=== PATIENT | male | born 1970 | race Caucasian/White ===

== ENCOUNTER → 2016-04-01 | Outpatient (CLI) | payer BC ==
[~2016-04-01] MED LIST: ATOR-22 PO; CEPH500C2 PO; FAMO20TA11 PO; IRBE-37 PO; LEVO50TA6 PO; MULT-506 PO; OXYC1TAB3 PO; PRED20TA PO
[2016-04-01 11:36] LABS: ALB/GLOB RATIO 1.1 (0.9-2); ALKALINE PHOSPHATASE 82 U/L (45-117); ALT/SGPT 155 U/L (12-78); AST/SGOT 65 U/L (15-37); BLOOD UREA NITROGEN 20 mg/dl (7-18); BUN/CREATININE RATIO 14.3 (10-20); CALCIUM 9.2 mg/dl (8.5-10.1); CARBON DIOXIDE 26 mmol/L (21-32); CHLORIDE 106 mmol/L (98-107); CHOLESTEROL 310 mg/dl (0-200); CHOLESTEROL/HDL RATIO 6.6; GLUCOSE 95 mg/dl (70-99); HDL CHOLESTEROL 47 mg/dl; LDL CHOLESTEROL CALCULATED 220 mg/dl; POTASSIUM 4.1 mmol/L (3.5-5.1); SODIUM 142 mmol/L (136-145); TRIGLYCERIDES 216 mg/dl (0-150); VERY LOW DENSITY LIPOPROT CALC 43 mg/dl
== END | disposition home or self-care (01) ==
LOC: C.LABBC 08:17
PROVIDERS: ATTEND Internal Medicine
DX: G47.33 Obstructive sleep apnea (adult) (pediatric) (principal)

== ENCOUNTER → 2016-04-12 | Outpatient (CLI) | payer BC | END | disposition home or self-care (01) | LOC: C.PATH 08:18 | PROVIDERS: ATTEND Internal Medicine | DX: R22.1 Localized swelling, mass and lump, neck (principal) ==

== ENCOUNTER → 2016-05-21 | Outpatient (CLI) | payer BC ==
--- NOTE | 2016-05-22 06:40 | PAP/PSG TECHNICIAN REPORT ---
[facility] Byproducts Maker Polysomnogram Report Study name: None Report date: 05/22/2016 Study date: 05/21/2016 Referring Physician: DR. Lianet LOCKHART Name: NIKOS THURMAN Interpreting Physician: Javier Mcgovern M.D. Date of : 1970 Byproducts Maker: Bobbi Montoya RPSGT. Sex: Male Age: 45 Study Type: PSG Weight: 232 lbs Height: 45 years, Height 6' 1" BMI: 30.61 Medications: ATORVASTATIN 20 MG, LEVOXYL 25 MCG, IRBESARTAN 150 MG, FISH OIL , MULTI VIT Patient History 45 yr-old male here for a baseline/split study. He has had previous sleep testing. He was found to be positive for mild PABLO in 2011. He could not tolerate CPAP, so he tried weight loss. His daytime sleepiness has returned. He is back to assess his PABLO. His [place] scale is 12. The test was started on room air. ETCO2 testing was not utilized during this study. Room 1 Parameters Monitored NPSG: E1-M2, E2-M1, Fp1-M2, Fp2-M1, F3-M2, F4-M2, F4-M1, C3-M2, C4-M2, C4-M1, O1-M2, O2-M2, O2-M1, T3-M2, T4-M1, P3-M2, P4-M1, CHIN1, CHIN2, HR, EKG, Legs, PFLOW, SNOR, FLOW, CFLOW, Tidal Volume, THOR, ABDO, SpO2, PLTH, CPRESS, ETCO2 Wave, ETCO2, pH Sleep Architecture Sleep Stages Time at Lights Off 10:46:37 PM STAGES Time (min.) TST (%) Time at Lights On 5:41:37 AM Wake 37.5 -- Total Recording Time (TRT) 415.00 min. N1 31.5 8 Total Sleep Period (TSP) 404.0 min. N2 253.0 67 Total Sleep Time (TST) 377.5min. N3 34.5 9 Awake Time 37.5 min. REM 58.5 15 Wake after Sleep Onset 35.5 min. Sleep Efficiency (SE) 91 % Sleep Onset Latency (FRED) 2.0 min. Number of Stage 1 Shifts None Awakenings 22 Stage Changes 91 Number of REM periods 4 REM 58.5 15 REM Latency 175.0 min. NREM 319.0 85 Body Position Analysis Supine Right Left Side Prone Vertical Total Sleep Time (min.) 130.1 167.7 81.5 249.18 0.0 0.0 Total Sleep Time (%) 34% 44% 22% 66 0% N/A% Total Sleep Time REM (min.) 19.0 39.0 0.5 None 0.0 0.0 Total Sleep Time NREM (min.) 109.3 128.7 81.0 None 0.0 0.0 Intermittent Wake (min.) 1.8 18.8 16.9 None 0.0 0.0 Total Sleep Period (%) 32% None None None None None Arousals Myoclonus (PLM) * Events Count Index Events Count Index Spontaneous 33 5 Events Awake (PLMW) 45 72.0 Respiratory 14 2.4 Events Asleep w/ Arousal (PLMA) 6 1.0 PLM 6 1 Events Asleep w/o Arousal (PLMS) 52 8.3 Snoring 8 1 Total Asleep 58 9.2 Total 60 10 Total 103 15 Respiratory Analysis * CA OA MA CH H RERA Total Count 0 4 0 0 41 6 45 Index 0.0 0.6 0.0 0 6.5 1 8.1 Mean Duration 0.0 23.9 0.0 0.00 21.1 17.4 20.9 Longest Duration 0.0 33.2 0.0 0.00 0.0 20.4 47.1 Respiratory Event Summary Total Supine ~Supine Right Left Prone REM NREM Apneas Count 4 2 2 2 0 N/A 3 1 Index 0.6 1 0 0.7 0.0 N/A 3 0 Hypopneas (4% Desat) Count 41 9 32 30 2 N/A 27 14 Index 6.5 4.2 8 10.7 1.5 N/A 27.7 2.6 Apneas & All Hypopneas Count 45 11 34 32 2 N/A 30 15 Index 7.2 5 8 11 1 N/A 30.8 2.8 Respiratory Events (Swat Team Member+All Hyp+RERA) Count 45 11 40 37 3 N/A 30 15 Index 8.1 5 10 13.2 2.2 N/A 34.9 3.2 Respiratory Related Arousal Count 14 11 11 10 1 N/A 7 8 Index 2.4 2 3 4 1 N/A 7 2 Snoring Analysis Supine Right Left Prone REM NREM Total Snore duration 59.0 min Snores count 925 939 502 N/A 393 1,973 2,366 Snore mean duration 1.5 Sec Snores index 433 336 370 N/A 403.1 371.1 376.1 TST with snoring (%) 15.6% Desaturation Event Summary: Minimum %SpO2 Event Count Mean/Min/Max Duration(sec.) Desaturation Index % Time In Bed > 90 71 31.6 / 9.3 / 60.0 11.9 87.9 86 - 90 8 23.6 / 9.3 / 37.0 10.6 11.1 81 - 85 0 N/A 0.0 0.9 76 - 80 0 N/A 0.0 0.1 71 - 75 0 N/A 0.0 0.0 66 - 70 0 N/A 0.0 0.0 61 - 65 0 N/A 0.0 0.0 56 - 60 0 N/A 0.0 0.0 51 - 55 0 N/A 0.0 0.0 < 50 0 N/A 0.0 0.0 Total REM NREM Awake <50% 0.0 min. 0.0 min. 0.0 min. 0.0 min. 51 - 60% 0.0 min. 0.0 min. 0.0 min. 0.0 min. 61 - 70% 0.0 min. 0.0 min. 0.0 min. 0.0 min. 71 - 80% 0.3 min. 0.3 min. 0.0 min. 0.0 min. 81 - 90% 48.8 min. 12.2 min. 35.7 min. 0.9 min. 91 - 100% 357.3 min. 46.1 min. 283.3 min. 27.9 min. Average 92 92 92 94 Minimum SpO2 77 77 87 82 Desaturation Event Index 10.4 31.8 6.8 8.0 # Desat. Events below 89% 25 17 8 N/A Time(%) with Saturation below 89% 2.1 1.7 0.3 0.1 Time(min.) with Saturation below 89% 8.5 6.9 1.3 0.3 Time (mins) REM (mins) NREM (mins) % of TST SpO2 Below 90% 56 28 N28 4.6 SpO2 Below 88% 12 0 0 1 Heart Rate Analysis Min (bpm) Max (bpm) Average (bpm) Awake 47 101 65 NREM 46 102 56 REM 48 90 59 Overall 46 102 57 Supplemental O2 Values Minimum O2 level: None Value Start Time End Time Byproducts Maker Comments Mr. Thurman slept in the right, left, and supine positions. No cardiac arrhythmias or PLMs noted. No bruxism noted. Snoring was noted and scored as a 3 on a scale of 1 through 5. (0=no snoring, 5=snoring loud enough to be heard through a closed door or down the marte way) He did not meet specific Split-Night criteria during the diagnostic portion of this study. He awoke to use the restroom one time during the night. Mr. Thurman stated that he slept about the same as usual. The final report will be interpreted and signed by a sleep physician. The completed physician report will then be placed in the patient medical record. Therapy (cm H2O) 0 TIB (min.) 415.0 TST (min.) 377.5 Sleep Onset (min.) 2.0 REM Onset From Sleep (min.) 175.0 Sleep Efficiency % 91 Wakefulness (%) 9 Wakefulness (min.) 37.5 NREM 1 (%) 8 NREM 1 (min.) 31.5 NREM 2 (%) 67 NREM 2 (min.) 253.0 NREM 3 (%) 9 NREM 3 (min.) 34.5 REM (%) 15 REM (min.) 58.5 # Arousals 60 Arousal Index 10 # Snore 2,366 Snore Index 376.1 AHI 7.2 AHI Supine 5 AHI Non-Supine 8 NREM AHI 2.8 REM AHI 30.8 RDI 8.1 # Obstructive Apnea 4 # Central Apnea 0 # Mixed Apnea 0 # Hypopneas 41 RERAs 6 Total Respiratory Events 51 Time Below SpO2 89% (min.) 8.2 Mean NREM SpO2 (%) 92 Mean REM SpO2 (%) 92 Mean Sleep SpO2 (%) 92 Min NREM SpO2 (%) 87 Min REM SpO2 (%) 77 Position Supine (min.) 130.1 Position Non-supine (min.) 249.2 LM Index Sleep 9.2 LM Index NREM 7.0 LM Index REM 21.5 Mean Heart Rate (bpm) 57 Min Heart Rate (bpm) 46
--- NOTE | 2016-05-24 09:40 | POLYSOMNOGRAPH REPORT ---
CLINICAL DATA: A 45-year-old male with a BMI of 30.6, referred by Dr. Mario Xiao for a baseline/split-night study. He had mild sleep apnea in 2012 but could not tolerate CPAP, so he tried weight loss. He now has had return of his daytime sleepiness. SLEEP ARCHITECTURE: Total sleep period was 404 minutes. Total sleep time was 377.5 minutes divided between 319 minutes of non-REM sleep and 58.5 minutes of REM sleep. Sleep onset latency was 2 minutes. REM latency was 175 minutes. Sleep efficiency was 91%. Wake after sleep onset was 35.5 minutes. Sleep consisted of stage N1 8%, N2 67%, N3 9%, REM 15%. AROUSAL DATA: 60 arousals were recorded for an index of 10 per hour. PLM DATA: 58 limb movements during sleep were noted for an index of 9.2 per hour with arousal index of 1 per hour. RESPIRATORY DATA: Mild sleep apnea was documented. The AHI was 7.2. The RDI was 8.1. There were 4 obstructive apneic episodes. The longest duration of apnea was 33.2 seconds. There were 41 hypopneic episodes. The mean duration of hypopnea was 21.1 seconds. There were 6 RERAs. The longest RERA was 20.4 seconds. OXIMETRY DATA: Nocturnal hypoxemia was seen. Oxygen diogenes was 77% during REM. Mean saturation was 92%. Time below 88% was 12 minutes. EKG: Heart rates ranged from 46-102 beats per minute. No arrhythmias were noted. SHEET ROCK TAPER'S COMMENTS: The patient slept in the right, left, and supine positions. Snoring was moderate, rated 3 on a scale of 1 through 5. He did not meet split-night criteria. IMPRESSION: Mild obstructive sleep apnea/hypopnea with an AHI of 7.2 and RDI of 8.1 with nocturnal hypoxemia. RECOMMENDATIONS: The patient may benefit from a repeat sleep study with CPAP, use of auto-CPAP, weight loss, or use of an oral appliance. Clinical correlation is needed. CRISTIANO
== END | disposition home or self-care (01) ==
LOC: C.NEUR 21:00
PROVIDERS: ATTEND Internal Medicine
DX: G47.00 Insomnia, unspecified (principal); G47.33 Obstructive sleep apnea (adult) (pediatric)

== ENCOUNTER 2016-12-12 23:49 | Emergency (ER) | payer BC ==
[~2016-12-12] VITALS: Ht 188 cm; Wt 103.3 kg
[2016-12-12 23:53] VITALS: TEMP 37; Ht 188 cm; Wt 103.3 kg
[2016-12-13] MEDS ORDERED: SODIUM CHLORIDE 0.9% 1000ML 1,000 ML IV STA (00:05)
[2016-12-13] MEDS ORDERED: CEFTRIAXONE SOD INJ 1 GM ADDVIAL IV STA (00:05)
[2016-12-13] MEDS ORDERED: ATOR-22 PO (00:13)
[2016-12-13] MEDS ORDERED: MULT-506 PO (00:13)
[2016-12-13] MEDS ORDERED: LEVO50TA6 PO (00:13)
[2016-12-13] MEDS ORDERED: IRBE-37 PO (00:13)
--- NOTE | 2016-12-13 00:13 | EMERGENCY ROOM VISIT NOTE ---
History Report prepared by Scribe: Cathy Navarro Under the Supervision of: Dr. Silas Araya M.D. First contact with patient: 00:00 Chief Complaint: ARM PAIN Stated Complaint: SWELLING IN LEFT ARM,PAIN IN LEFT ARM History of Present Illness The patient is a 46 year old male who presents to the Emergency Room with complaints of worsening left arm pain for the past 1 week. He rates his current discomfort as a 6/10 in severity. The patient reports he initially experienced a poison sara like rash on his left arm after being out in his back yard 1 week ago. Since then, the arm has become increasingly red, painful and swollen. He saw his doctors office several days ago and was placed on a course of Prednisone , which he since has finished. The Prednisone has provided only minimal relief. He has also experienced a rash on his left chest and flank area, but it's less severe than his left arm. The patient admits to a previous Poison Sara rash once before but states it was less severe than this occurrence. He denies any recent fevers, nausea, vomiting or syncopal episodes. Source of History: patient Onset: 1 week INSTRUMENT STERILIZER Position: arm (left) Symptom Intensity: 6/10 Timing: worsening Modifying Factors (Relieving): other (Prednisone) Associated Symptoms: + rash (left chest and flank), No fevers, No nausea, No vomiting Review of Systems See HPI for pertinent positives & negatives. A total of 10 systems reviewed and were otherwise negative. Past Medical & Surgical Medical Problems: (1) Hypertension Family History Diabetes mellitus Heart disease Hypertension Social History Smoking Status: Never Smoker Smokeless Tobacco Use: No Alcohol Use: occasionally Drug Use: none Marital Status: single Housing Status: lives alone Occupation Status: employed Current/Historical Medications Scheduled Atorvastatin (Lipitor), 20 MG PO DAILY Cephalexin Monohydrate (Keflex), 500 MG PO QID Irbesartan (Avapro), 150 MG PO DAILY Levothyroxine Sodium (Levothyroxine Sodium), 1 TAB PO DAILY Multivitamin (Multivitamin), 1 TAB PO DAILY Scheduled PRN Oxycodone Immediate Rel Tab (Roxicodone Ir), 1-2 TAB PO Q4H PRN for Severe Pain Allergies Coded Allergies: No Known Allergies (Unverified , 12/13/16) Physical Exam Vital Signs Date Time Temp Pulse Resp B/P (MAP) Pulse Ox O2 Delivery O2 Flow Rate FiO2 12/13/16 02:53 76 16 127/69 98 12/13/16 01:26 68 20 118/74 98 12/12/16 23:53 37.0 76 18 171/101 95 Room Air Physical Exam GENERAL: Patient is uncomfortable appearing and in mild distress. HEENT: No acute trauma, normocephalic atraumatic, mucous membranes moist, no nasal congestion, no scleral icterus. NECK: No stridor, no adenopathy, no meningismus, trachea is midline. LUNGS: No dyspnea. Clear to auscultation and equal bilaterally. No wheeze, no rhonchi. HEART: Regular rate and rhythm. No murmurs, rubs, gallops appreciated. EXTREMITIES: Swelling of the left arm, with extensive erythematous bullae and multiple areas of weeping and scabs. Distal pulses, movement and sensation are intact. Compartments are soft. NEUROLOGIC: Alert and oriented, no acute motor or sensory deficits, no focal weakness, cranial nerves grossly intact. SKIN: Mild rash over left flank and chest. No jaundice, no diaphoresis. Medical Decision & Procedures ER Provider Diagnostic Interpretation: Radiology results and stated below per my review and radiologist interpretation: US VENOUS LEFT UPPER EXTREMITY: No evidence of DVT. Heterogeneously increased echogenicity of the muscles of the anterior upper arm. Radiologist: Pablo Galvez M.D. Laboratory Results 12/13/16 00:10 Red Blood Count 5.07, Mean Corpuscular Volume 88.6, Mean Corpuscular Hemoglobin 30.8, Mean Corpuscular Hemoglobin Concent 34.7, Mean Platelet Volume 10.6, Neutrophils (%) (Auto) 42.3, Lymphocytes (%) (Auto) 37.3, Monocytes (%) (Auto) 10.6, Eosinophils (%) (Auto) 8.7, Basophils (%) (Auto) 0.7, Neutrophils # (Auto ) 4.74, Lymphocytes # (Auto) 4.19, Monocytes # (Auto) 1.19, Eosinophils # (Auto ) 0.98, Basophils # (Auto) 0.08 12/13/16 00:10 Test 12/13/16 00:10 White Blood Count 11.22 K/uL (4.8-10.8) Red Blood Count 5.07 M/uL (4.7-6.1) Hemoglobin 15.6 g/dL (14.0-18.0) Hematocrit 44.9 % (42-52) Mean Corpuscular Volume 88.6 fL (80-100) Mean Corpuscular Hemoglobin 30.8 pg (25-34) Mean Corpuscular Hemoglobin Concent 34.7 g/dl (32-36) Platelet Count 285 K/uL (130-400) Mean Platelet Volume 10.6 fL (7.4-10.4) Neutrophils (%) (Auto) 42.3 % Lymphocytes (%) (Auto) 37.3 % Monocytes (%) (Auto) 10.6 % Eosinophils (%) (Auto) 8.7 % Basophils (%) (Auto) 0.7 % Neutrophils # (Auto) 4.74 K/uL (1.4-6.5) Lymphocytes # (Auto) 4.19 K/uL (1.2-3.4) Monocytes # (Auto) 1.19 K/uL (0.11-0.59) Eosinophils # (Auto) 0.98 K/uL (0-0.5) Basophils # (Auto) 0.08 K/uL (0-0.2) RDW Standard Deviation 42.0 fL (36.4-46.3) RDW Coefficient of Variation 13.0 % (11.5-14.5) Immature Granulocyte % (Auto) 0.4 % Immature Granulocyte # (Auto) 0.04 K/uL (0.00-0.02) Anion Gap 9.0 mmol/L (3-11) Est Creatinine Clear Calc Drug Dose 100.7 ml/min Estimated GFR () 84.7 Estimated GFR (Non- 73.1 BUN/Creatinine Ratio 16.9 (10-20) Calcium Level 8.3 mg/dl (8.5-10.1) Total Creatine Kinase 219 U/L (39-308) C-Reactive Protein < 0.29 mg/dl (0-0.29) Laboratory results as reviewed by me. Medications Administered Medications (Trade) Dose Ordered Sig/Kirsten Route Start Time Stop Time Status Last Admin Dose Admin Sodium Chloride 1,000 ml @ 999 mls/hr Q1H1M STAT IV 12/13/16 00:05 12/13/16 01:05 DC 12/13/16 00:16 999 MLS/HR Ceftriaxone Sodium (Rocephin Inj) 1 gm NOW STAT IV 12/13/16 00:05 12/13/16 00:07 DC 12/13/16 00:16 1 GM Dexamethasone Sodium Phosphate (Decadron Inj) 10 mg NOW ONCE IV 12/13/16 00:15 12/13/16 00:16 DC 12/13/16 00:17 10 MG Oxycodone HCl (Roxicodone Immediate Rel 5MG Home Pack) 1 homepack UD ONCE PO 12/13/16 02:30 12/13/16 02:31 DC 12/13/16 02:40 1 HOMEPACK ED Course 0001: The patient was evaluated in room B6. A complete history and physical exam was performed. 0005: Rocephin 1 gm IV, NSS 1000 ml @ 999 mls/hr IV. 0015: Decadron 10 mg IV. 0200: I reevaluated the patient. He is still in some discomfort but resting. 0230: I reevaluated the patient. He is feeling well and resting comfortably. I had a long conversation with him about wound care follow up and he is agreeable with this plan. I discussed his results and discharge instructions and he verbalized complete understanding and agreement. 0230: Oxycodone HCl 5 mg 1 homepack PO. Medical Decision Differential: Contact Dermatitis, Viral Exanthem, Urticaria, Allergic Reaction, SJS, Toxic Epidermal Necrolysis, Erythema Multiforme, Cellulitis, Scabies, HSV, Varicella, Zoster, Eczema, Staph Scalded Skin, Fungal, amongst other pathologies entertained. 46 yr old male with extensive dermatitis, blistering, weeping of left arm from mid humerus to wrist non circumferential. Also with some small areas of rash along left flank. Clearly uncomfortable though no obvious evidence of compartment syndrome. While WBC and CRP look pretty good the surrounding erythema of arm is consistent with secondary cellulitis. I did go ahead with US left arm revealing no obvious DVT. No compartment syndrome by exam nor story. He notes he felt terrible on the steroid pack he was on thus I will refrain from given further steroids. I do wish for this to be re-checked by wound care this week given the extent of blistering, though hopefully with some abx cellulitis will get under control. Clearly this is uncomfortable and I feel narcotics warranted, I did review at length risks of these medications. Reviewed symptoms requiring RTED. Medication Reconcilliation Current Medication List: was personally reviewed by me Blood Pressure Screening Patient's blood pressure: Normal blood pressure Blood pressure disposition: Did not require urgent referral Impression Primary Impression: Contact dermatitis Additional Impression: Cellulitis Scribe Attestation The scribe's documentation has been prepared under my direction and personally reviewed by me in its entirety. I confirm that the note above accurately reflects all work, treatment, procedures, and medical decision making performed by me. Departure Information Dispostion Home / Self-Care Prescriptions Cephalexin Monohydrate (KEFLEX) 500 Mg Cap 500 MG PO QID for 7 Days, #28 CAP Prov: Silas Araya M.D. 12/13/16 Oxycodone Immediate Rel Tab (ROXICODONE IR) 5 Mg Tab 1-2 TAB PO Q4H Y for Severe Pain, #12 TAB Prov: Silas Araya M.D. 12/13/16 Referrals Mario Xiao M.D. (PCP) Charles Chacon, DO Patient Instructions [facility] Additional Instructions Keep arm elevated when possible. Use light dry wraps for wound care. Wash with lukewarm soap and water twice daily. Return if increasing swelling, pain, sloughing of skin, fevers, discoloration of hand or other concerning symptoms. Please follow up with wound care this week for further evaluation. You have received a narcotic pain medication prescription. These medications may cause drowsiness and should not be used with other sedative medications. Do not drive, drink alcohol, perform dangerous activities, nor make important decisions after taking these medications. detention use or inappropriate use may lead to addiction. Problem Qualifiers
[2016-12-13] MEDS ORDERED: DEXAMETHASONE SOD INJ 10 MG/ML VIAL IV ONE (00:15)
[2016-12-13 00:48] LABS: BLOOD UREA NITROGEN 20 mg/dl (7-18); BUN/CREATININE RATIO 16.9 (10-20); CALCIUM 8.3 mg/dl (8.5-10.1); CARBON DIOXIDE 27 mmol/L (21-32); CHLORIDE 104 mmol/L (98-107); GLUCOSE 98 mg/dl (70-99); POTASSIUM 3.6 mmol/L (3.5-5.1); SODIUM 140 mmol/L (136-145)
[2016-12-13 00:51] LABS: C-REACTIVE PROTEIN < 0.29 mg/dl (0-0.29)
[2016-12-13 01:28] LABS: BASO % 0.7 %; BASO ABS # 0.08 K/uL (0-0.2); COMPLETE YES; EOS % 8.7 %; HEMATOCRIT 44.9 % (42-52); IG% 0.4 %; LYMPH % 37.3 %; LYMPH ABS # 4.19 K/uL (1.2-3.4); MEAN CELL VOLUME 88.6 fL (80-100); MEAN CORPUSCULAR HEMOGLOBIN 30.8 pg (25-34); MEAN CORPUSCULAR HGB CONC 34.7 g/dl (32-36); MEAN PLATELET VOLUME 10.6 fL (7.4-10.4); MONO % 10.6 %; NEUT % 42.3 %; PLATELET COUNT 285 K/uL (130-400); RED BLOOD COUNT 5.07 M/uL (4.7-6.1); WHITE BLOOD COUNT 11.22 K/uL (4.8-10.8)
[2016-12-13] MEDS ORDERED: OXYCODONE IR HOME PACK PO ONE (02:30)
[2016-12-13] MEDS ORDERED: OXYC1TAB3 PO (02:32)
[2016-12-13] MEDS ORDERED: CEPH500C2 PO (02:32)
[2016-12-13 02:53] VITALS: BP 127/69; PULSE 76; O2SAT 98
--- NOTE | 2016-12-13 06:35 | DIAGNOSTIC IMAGING REPORT ---
LEFT UPPER EXTREMITY VENOUS DOPPLER ULTRASOUND CLINICAL HISTORY: Left arm swelling post poison desmond. COMPARISON STUDY: No previous studies for comparison. FINDINGS: The left internal jugular, subclavian, axillary, cephalic, brachial, basilic, radial and ulnar veins were patent. Several areas of increased echogenicity within the musculature of the anterior upper arm were noted. No fluid collection was identified. IMPRESSION: 1. No deep venous thrombus within the left upper extremity. 2. A few areas of increased echogenicity within the musculature of the anterior left upper arm, a nonspecific finding. No fluid collection. Electronically signed by: Ilan Carballo M.D. 12/13/2016 6:34 AM Dictated Date/Time: 12/13/2016 6:31 AM
[2016-12-19] MEDS ORDERED: FAMO20TA11 PO (09:24)
[2016-12-19] MEDS ORDERED: PRED20TA PO (09:24)
== END 2016-12-13 02:54 | disposition home or self-care (01) ==
LOC: C.EDB 23:50
DX: L23.7 Allergic contact dermatitis due to plants, except food (principal); L03.114 Cellulitis of left upper limb; I10 Essential (primary) hypertension; Z83.3 Family history of diabetes mellitus; Z82.49 Family history of ischemic heart disease and other diseases of the circulatory system